=== PATIENT | female | born 1995 | race African-American/Black ===

== ENCOUNTER 2023-03-25 14:42 | Inpatient (IN) | payer OTHER ==
[2023-03-25 15:07] VITALS: BMI 44.8
[2023-03-25] MEDS ORDERED: hydrALAZINE 20 MG/ML VIAL SLOW IVP PRN ×2 (15:25→19:27)
[2023-03-25] MEDS ORDERED: Bicitra 30 ML UDCUP PO PRN (15:25)
[2023-03-25] MEDS ORDERED: Ondansetron PF 4 MG/2 ML Vial IVP PRN ×3 (15:25→16:38)
[2023-03-25] MEDS ORDERED: Tranexamic Acid 1,000 MG/10 ML VIAL IVP PRN (15:25)
[2023-03-25] MEDS ORDERED: Carboprost 250 MCG/ML AMP IM PRN (15:25)
[2023-03-25] MEDS ORDERED: Promethazine HCl 25 MG/ML VIAL IM PRN ×2 (15:25→16:38)
[2023-03-25] MEDS ORDERED: Methylergonovine 0.2 MG/ML VIAL IM PRN (15:25)
[2023-03-25] MEDS ORDERED: Misoprostol 200 MCG TAB PR PRN (15:25)
[2023-03-25] MEDS ORDERED: Famotidine/PF 20 mg/2ml Vial SLOW IVP PRN (15:25)
[2023-03-25] MEDS ORDERED: Diphenoxylate HCl/Atropine Tablet PO PRN (15:25)
[2023-03-25] MEDS ORDERED: Azithromycin 500 MG in Sodium Chloride 0.9% 250 ML 250 ML IVPB SCH (15:30)
[2023-03-25] MEDS ORDERED: CEFAZOLIN 2 GM in Sodium Chloride 0.9% 100 ML IVPB SCH (15:30)
[2023-03-25] MEDS ORDERED: Oxytocin 30 units/NS 500 ML 500 ML IV SCH (15:30)
[2023-03-25] MEDS ORDERED: Morphine PF 10 MG/10 ML VIAL ONE (15:55)
[2023-03-25] MEDS ORDERED: Oxytocin 10 UNITS/ML VIAL ONE ×2 (15:55→17:13)
[2023-03-25] MEDS ORDERED: Ondansetron PF 4 MG/2 ML Vial ONE (15:55)
[2023-03-25] MEDS ORDERED: Phenylephrine 40 MG/NS 250 ML 250 ML ONE (15:55)
[2023-03-25] MEDS ORDERED: fentaNYL 50 mcg/mL 1 mL Vial ONE (15:55)
[2023-03-25] MEDS ORDERED: ePHEDrine Sulfate 50 MG/10 ML VIAL ONE (15:55)
[2023-03-25 16:33] LABS: Hematocrit 32.7 % (34.9-44.5); Hemoglobin 11.2 g/dL (12.0-15.5); Mean Corpuscular HGB CONC 34.3 g/dL (32.0-36.0); Mean Corpuscular Hemoglobin 29.9 pg (27.0-33.0); Mean Corpuscular Volume 87.4 fl (81.6-98.3); Mean Platelet Volume 12.5 fl (7.4-10.4); Platelet Count 158 10x3/uL (150-450); RBC Distribution Width 13.3 % (11.5-14.5); Red Blood Cell (RBC) Count 3.74 10x6/uL (3.90-5.03); White Blood Cell (WBC) Count 10.4 10x3/uL (3.5-10.5)
[2023-03-25] MEDS ORDERED: Naloxone HCl 0.4 mg/ml Vial IV PRN (16:38)
[2023-03-25] MEDS ORDERED: Ketorolac Tromethamine 30 MG/ML VIAL IVP PRN (16:38)
[2023-03-25] MEDS ORDERED: Meperidine HCl/PF 25 MG/ML VIAL SLOW IVP PRN (16:38)
[2023-03-25] MEDS ORDERED: Promethazine HCl 25 MG SUPP PR PRN (16:38)
[2023-03-25] MEDS ORDERED: Morphine 4 MG/ML VIAL SLOW IVP PRN (16:38)
[2023-03-25] MEDS ORDERED: Moisturizing Cream (Eucerin) 113 GM JAR TOP PRN (16:38)
[2023-03-25] MEDS ORDERED: fentaNYL 50 mcg/mL 1 mL Vial SLOW IVP PRN (16:38)
[2023-03-25] MEDS ORDERED: Naloxone HCl 0.4 mg/ml Vial IVP PRN ×2 (16:38)
[2023-03-25] MEDS ORDERED: Ketorolac Tromethamine 30 MG/ML VIAL IVP SCH (16:45)
[2023-03-25] MEDS ORDERED: Communication Order-Pharmacy FS SCH (16:45)
[2023-03-25] MEDS ORDERED: Midazolam HCl 2 mg/2 ml Vial ONE (17:15)
[2023-03-25 17:17] LABS: Syphilis Antibody Nonreactive (Nonreactive); Syphilis Antibody Index 0.04 S/CO (<1.00 Non-Reactive)
[2023-03-25 17:18] LABS: HBSAg Index 0.15 S/CO (0-0.99); Hep B Surf Ag - L&D Non-Reactive S/CO (NonReactive)
[2023-03-25] MEDS ORDERED: hydrALAZINE 20 MG/ML VIAL ONE (19:09)
[2023-03-25] MEDS ORDERED: Lorazepam 2 MG/ML VIAL SLOW IVP PRN (19:27)
[2023-03-25] MEDS ORDERED: Calcium Gluc 4.6 MEQ/10 ML (100 MG/ML) SLOW IVP PRN (19:27)
[2023-03-25] MEDS: Magnesium Sulfate 20 gm/500 ml 20 GM/500 ML BAG IVPB SCH (19:47)
[2023-03-25 19:59] LABS: ALT (SGPT) 8 U/L (8-55); AST (SGOT) 16 U/L (5-34); Albumin 3.1 g/dL (3.5-5.0); Alkaline Phosphatase 110 U/L (40-110); Anion Gap 13 mmol/L (10-20); BUN (Urea Nitrogen) 17 mg/dL (7.0-18.7); Bilirubin, Total 0.3 mg/dL (0.2-1.2); Calc. Creatinine Clearance 191 mL/min (70-130); Carbon Dioxide 18 mmol/L (22-29); Chloride 110 mmol/L (98-107); Estimated GFR 106; Globulin 2.8 g/dL (2.4-3.5); Glucose 71 mg/dL (70-105); Potassium 4.4 mmol/L (3.5-5.1); Protein, Total 5.9 g/dL (6.0-8.3); Sodium 137 mmol/L (136-145)
[2023-03-25] MEDS: Lactated Ringer's 1,000 ML IV SCH (21:22)
[2023-03-26 01:52] LABS: Magnesium 3.6 mg/dL (1.6-2.6)
[2023-03-26] MEDS: diphenhydrAMINE 50 MG/ML VIAL IVP PRN ×3 (02:01→14:39)
[2023-03-26 02:08] LABS: Hemoglobin 10.7 g/dL (12.0-15.5); Mean Corpuscular HGB CONC 34.5 g/dL (32.0-36.0); Mean Corpuscular Hemoglobin 30.2 pg (27.0-33.0); Mean Corpuscular Volume 87.6 fl (81.6-98.3); Mean Platelet Volume 12.2 fl (7.4-10.4); Platelet Count 163 10x3/uL (150-450); RBC Distribution Width 13.2 % (11.5-14.5); Red Blood Cell (RBC) Count 3.54 10x6/uL (3.90-5.03); White Blood Cell (WBC) Count 13.1 10x3/uL (3.5-10.5)
[2023-03-26] MEDS ORDERED: Ondansetron PF 4 MG/2 ML Vial IVP PRN (02:08)
[2023-03-26] MEDS ORDERED: Promethazine HCl 25 MG/ML VIAL IM PRN (02:08)
[2023-03-26] MEDS ORDERED: hydrALAZINE 20 MG/ML VIAL SLOW IVP PRN (02:08)
[2023-03-26] MEDS ORDERED: Lanolin Ointment 7 GM TUBE TOP PRN (02:08)
[2023-03-26] MEDS ORDERED: diphenhydrAMINE 25 MG CAP PO PRN (02:08)
[2023-03-26] MEDS ORDERED: Bisacodyl 10 MG SUPP PR PRN (02:08)
[2023-03-26] MEDS ORDERED: Simethicone Chewable 80 MG TAB PO PRN (02:08)
[2023-03-26] MEDS ORDERED: Boostrix 0.5 ML (Tdap) VIAL (>/=7 yrs of age) IM ONE (02:08)
[2023-03-26] MEDS ORDERED: Docusate 100 MG CAP PO SCH (02:30)
[2023-03-26] MEDS ORDERED: Ferrous Sulfate 325 MG TAB PO SCH (02:30)
[2023-03-26] MEDS ORDERED: Moisturizing Cream (Eucerin) 113 GM JAR TOP PRN (02:51)
[2023-03-26] MEDS ORDERED: Furosemide 20 MG/2 ML VIAL SLOW IVP SCH (04:30)
[2023-03-26 05:17] LABS: ALT (SGPT) 13 U/L (8-55); AST (SGOT) 27 U/L (5-34); Albumin 2.6 g/dL (3.5-5.0); Alkaline Phosphatase 90 U/L (40-110); Anion Gap 11 mmol/L (10-20); BUN (Urea Nitrogen) 17 mg/dL (7.0-18.7); Bilirubin, Total 0.4 mg/dL (0.2-1.2); Calc. Creatinine Clearance 199 mL/min (70-130); Calcium 8.1 mg/dL (7.8-10.44); Carbon Dioxide 19 mmol/L (22-29); Chloride 107 mmol/L (98-107); Estimated GFR 111; Globulin 2.4 g/dL (2.4-3.5); Glucose 73 mg/dL (70-105); Potassium 4.4 mmol/L (3.5-5.1); Sodium 133 mmol/L (136-145)
[2023-03-26] MEDS: Ketorolac Tromethamine 30 MG/ML VIAL IVP SCH ×2 (05:59→19:39)
[2023-03-26] MEDS: Docusate 100 MG CAP PO SCH (09:48)
[2023-03-26] MEDS: Prenatal Vitamin 1 TAB PO SCH (09:48)
[2023-03-26] MEDS: Labetalol HCl 100 MG TAB PO SCH ×2 (09:48→14:40)
[2023-03-26] MEDS: Ferrous Sulfate 325 MG TAB PO SCH (09:48)
[2023-03-26] MEDS: Magnesium Sulfate 20 gm/500 ml 20 GM/500 ML BAG IVPB SCH (12:17)
[2023-03-26] MEDS ORDERED: Labetalol HCl 200 MG TAB PO SCH (20:00)
[2023-03-26] MEDS ORDERED: hydrALAZINE 20 MG/ML VIAL SLOW IVP SCH (20:00)
[2023-03-26] MEDS ORDERED: hydrOXYzine 25 MG TAB PO SCH (20:00)
[2023-03-27] MEDS: Ibuprofen 800 MG TAB PO SCH ×3 (01:33→18:22)
[2023-03-27] MEDS: Ketorolac Tromethamine 30 MG/ML VIAL IVP SCH (01:34)
[2023-03-27] MEDS: Magnesium Sulfate 20 gm/500 ml 20 GM/500 ML BAG IVPB SCH (02:26)
[2023-03-27] MEDS: Docusate 100 MG CAP PO SCH ×3 (06:49→21:06)
[2023-03-27] MEDS: Ferrous Sulfate 325 MG TAB PO SCH ×3 (06:50→21:04)
[2023-03-27] MEDS: Prenatal Vitamin 1 TAB PO SCH (08:48)
[2023-03-27] MEDS: Lactated Ringer's 1,000 ML IV SCH (08:59)
[2023-03-27] MEDS ORDERED: Labetalol HCl 200 MG TAB PO SCH (09:00)
[2023-03-27] MEDS: Labetalol HCl 200 MG TAB PO SCH ×2 (13:35→21:06)
[2023-03-27] MEDS: HYDROcodone/Acetaminophen 5/325 mg Tablet PO PRN (18:22)
[2023-03-28] MEDS: Ibuprofen 800 MG TAB PO SCH ×3 (01:22→17:32)
[2023-03-28] MEDS: HYDROcodone/Acetaminophen 5/325 mg Tablet PO PRN ×3 (04:01→18:44)
[2023-03-28] MEDS: Labetalol HCl 200 MG TAB PO SCH ×3 (05:31→21:20)
[2023-03-28] MEDS: Ferrous Sulfate 325 MG TAB PO SCH ×2 (07:33→21:24)
[2023-03-28] MEDS: Docusate 100 MG CAP PO SCH ×2 (08:56→21:20)
[2023-03-28] MEDS: Prenatal Vitamin 1 TAB PO SCH (08:56)
[2023-03-29] MEDS: Ibuprofen 800 MG TAB PO SCH ×2 (01:58→09:51)
[2023-03-29] MEDS: Labetalol HCl 200 MG TAB PO SCH ×2 (06:08→13:20)
[2023-03-29] MEDS: HYDROcodone/Acetaminophen 5/325 mg Tablet PO PRN ×2 (06:28→12:40)
[2023-03-29] MEDS: Prenatal Vitamin 1 TAB PO SCH (08:53)
[2023-03-29] MEDS: Docusate 100 MG CAP PO SCH (08:54)
[2023-03-29] MEDS: Ferrous Sulfate 325 MG TAB PO SCH (08:54)
[2023-03-29] MEDS ORDERED: NIFEdipine XL 30 MG ER.TAB PO SCH (09:00)
[2023-03-29 11:23] VITALS: TEMP 98.1
[2023-03-29 13:48] VITALS: BP 140/97
== END 2023-03-29 16:55 | disposition home or self-care (01) | DRG 788 ==
LOC: CSHLD/OP 14:42 → CSHLD 15:20 → CSHPP 03-27 15:52
PROVIDERS: ADMIT Family Medicine; ATTEND Family Medicine
PROC: 10D00Z1 Extraction of Products of Conception, Low, Open Approach (ICD-10-PCS; principal; 2023-03-25)
DX: O34.211 Maternal care for low transverse scar from previous cesarean delivery (principal); Z3A.39 39 weeks gestation of pregnancy; Z37.0 Single live birth; O76 Abnormality in fetal heart rate and rhythm complicating labor and delivery; O77.0 Labor and delivery complicated by meconium in amniotic fluid
CPT/HCPCS: 36415; 51702; 80053; 82570; 83735; 84156; 85027; 86780; 86850; 86900; 86901; 87340; 99285; J0360; J0456; J1200; J1885; J1940; J2250; J2274; J2405; J2590; J3010; J3475; J3490; J7050; J7120; S0028

== ENCOUNTER 2025-03-12 08:45 | Inpatient (IN) | payer OTHER ==
[2025-03-12] MEDS ORDERED: Famotidine/PF 20 mg/2ml Vial SLOW IVP PRN (08:50)
[2025-03-12] MEDS ORDERED: Diphenoxylate HCl/Atropine Tablet PO PRN (08:50)
[2025-03-12] MEDS ORDERED: Methylergonovine 0.2 MG/ML VIAL IM PRN (08:50)
[2025-03-12] MEDS ORDERED: Ondansetron PF 4 MG/2 ML Vial IVP PRN ×4 (08:50→15:53)
[2025-03-12] MEDS ORDERED: Tranexamic Acid 1,000 MG/10 ML VIAL IVP PRN (08:50)
[2025-03-12] MEDS ORDERED: hydrALAZINE 20 MG/ML VIAL SLOW IVP PRN ×2 (08:50→15:53)
[2025-03-12] MEDS ORDERED: Carboprost 250 MCG/ML AMP IM PRN (08:50)
[2025-03-12] MEDS ORDERED: Bicitra 30 ML UDCUP PO PRN (08:50)
[2025-03-12] MEDS ORDERED: Oxytocin 30 units/NS 500 ML 500 ML IV SCH (09:00)
[2025-03-12 09:08] VITALS: BMI 43.5
[2025-03-12 09:47] LABS: Hematocrit 29.9 % (34.9-44.5); Hemoglobin 10.1 g/dL (12.0-15.5); Mean Corpuscular Hemoglobin 28.6 pg (27.0-33.0); Mean Corpuscular Volume 84.7 fL (81.6-98.3); Platelet Count 241 10x3/uL (150-450); Red Blood Cell (RBC) Count 3.53 10x6/uL (3.90-5.03); White Blood Cell (WBC) Count 8.49 10x3/uL (3.5-10.5)
[2025-03-12 10:19] LABS: Syphilis Antibody Index 0.06 S/CO (<1.00 Non-Reactive)
[2025-03-12 10:20] LABS: Hep B Surf Ag - L&D Non-Reactive S/CO (NonReactive)
[2025-03-12] MEDS ORDERED: diphenhydrAMINE 50 MG/ML VIAL IVP PRN (10:25)
[2025-03-12] MEDS ORDERED: Meperidine HCl/PF 25 MG (1 mL) VIAL SLOW IVP PRN (10:25)
[2025-03-12] MEDS ORDERED: Communication Order-Pharmacy FS SCH (10:30)
[2025-03-12] MEDS ORDERED: Boostrix 0.5 ML (Tdap) VIAL (>/=7 yrs of age) IM ONE (15:53)
[2025-03-12] MEDS ORDERED: diphenhydrAMINE 25 MG CAP PO PRN (15:53)
[2025-03-12] MEDS: Phenylephrine 40 MG/NS 250 ML 250 ML ONE (18:13)
[2025-03-12] MEDS: Oxytocin 10 UNITS/ML VIAL ONE (18:14)
[2025-03-12] MEDS: Dexamethasone 10 MG/ML VIAL ONE (18:14)
[2025-03-12] MEDS: Ketorolac Tromethamine 30 MG (1 mL) VIAL ONE (18:14)
[2025-03-12] MEDS: Ondansetron PF 4 MG/2 ML Vial ONE (18:14)
[2025-03-12] MEDS: Ketorolac Tromethamine 30 MG (1 mL) VIAL IVP SCH (18:30)
[2025-03-13] MEDS ORDERED: Meperidine HCl/PF 25 MG (1 mL) VIAL IM PRN
[2025-03-13] MEDS ORDERED: HYDROcodone/Acetaminophen 5/325 mg Tablet PO PRN
[2025-03-13 04:10] LABS: Hematocrit 28.1 % (34.9-44.5); Hemoglobin 9.6 g/dL (12.0-15.5); Mean Corpuscular Hemoglobin 29.2 pg (27.0-33.0); Mean Corpuscular Volume 85.4 fL (81.6-98.3); Platelet Count 228 10x3/uL (150-450); Red Blood Cell (RBC) Count 3.29 10x6/uL (3.90-5.03); White Blood Cell (WBC) Count 16.26 10x3/uL (3.5-10.5)
[2025-03-13] MEDS: HYDROcodone/Acetaminophen 5/325 mg Tablet PO PRN (14:11)
[2025-03-13] MEDS: Ferrous Sulfate 325 MG TAB PO SCH (15:44)
[2025-03-13] MEDS: Ibuprofen 800 MG TAB PO SCH (22:35)
[2025-03-15 12:40] VITALS: BP 123/63; TEMP 98.6
== END 2025-03-15 16:53 | disposition home or self-care (01) | DRG 788 ==
LOC: CSHLD 08:45 → CSHPP 15:24
PROVIDERS: ADMIT Family Medicine; ATTEND Family Medicine
PROC: 10D00Z1 Extraction of Products of Conception, Low, Open Approach (ICD-10-PCS; principal; 2025-03-12)
PROC: 4A1HXCZ Monitoring of Products of Conception, Cardiac Rate, External Approach (ICD-10-PCS; 2025-03-12)
DX: O34.211 Maternal care for low transverse scar from previous cesarean delivery (principal); Z37.0 Single live birth; Z3A.39 39 weeks gestation of pregnancy
CPT/HCPCS: 36415; 51702; 85027; 86780; 86850; 86900; 86901; 87340; C1889; J1100; J1885; J2274; J2550; J2590